=== PATIENT | male | born 1975 | race African-American/Black ===

== ENCOUNTER 2023-12-04 08:04 | Emergency (ER) | payer OTHER ==
[2023-12-04 08:24] VITALS: TEMP 98.9; BMI 23.7
[2023-12-04] MEDS ORDERED: ALBUTEROL SO4 2.5/IPRATROPIUM 0.5 INH SOL 3 ML VIAL.NEB. NEB ONE ×2 (09:08→09:10)
[2023-12-04] MEDS: ALBUTEROL SO4 2.5/IPRATROPIUM 0.5 INH SOL 3 ML VIAL.NEB. NEB SCH (09:12)
[2023-12-04 10:22] VITALS: BP 129/90; PULSE 97; RESP 20
== END 2023-12-04 10:42 | disposition home or self-care (01) ==
LOC: FER 08:04
PROC: 3E0F7GC Introduction of Other Therapeutic Substance into Respiratory Tract, Via Natural or Artificial Opening (ICD-10-PCS; principal; 2023-12-04)
DX: J45.901 Unspecified asthma with (acute) exacerbation (principal); R06.02 Shortness of breath; R09.81 Nasal congestion; R05.9 Cough, unspecified
CPT/HCPCS: 99283-25